=== PATIENT | female | born 1985 | race Caucasian/White ===

== ENCOUNTER 2016-11-27 21:29 | Emergency (ER) | payer BC, OTHER ==
[2016-11-27 22:07] VITALS: BP 114/77
--- NOTE | 2016-11-27 22:31 | EDM.PDOC ---
ED HPI GENERAL MEDICAL PROBLEM - General Chief Complaint: General Stated Complaint: PELVIC PAIN Time Seen by Provider: 11/27/16 22:15 Source of Information: Reports: Patient History Limitations: Reports: No limitations - History of Present Illness INITIAL COMMENTS - FREE TEXT/NARRATIVE: Chika experience midline crampy sharp pelvic pain following coitus this evening. Activity was customary, and sxs began shortly after consumation and peristed for nearly 2 hours. She still feels deep pain with standing and bending.There are no digestive, alanna vaginal or urinary sxs. She has taken no meds. There is no PMH of STD. She is on OCP and in a monogamous relationship x 5 years. bilateral pelvic area Pain Score (Numeric/FACES): 5 - Related Data Allergies Allergy/AdvReac Type Severity Reaction Status Date / Time minocycline Allergy Hives Verified 11/27/16 21:57 Sulfa (Sulfonamide Allergy Hives Verified 11/27/16 21:57 Antibiotics) Tetracyclines Allergy Hives Verified 11/27/16 21:57 Home Meds: Home Meds Norgestimate-Ethinyl Estradiol [Ortho Tri-Cyclen 28 Tablet] 1 tab PO DAILY 11/27 [History] Past Medical History Cardiovascular History: Reports: Heart murmur Other Cardiovascular History: heart murmur when she was a baby Other Respiratory History: stress-induced asthma Social & Family History - Family History Family Medical History: Noncontributory - Tobacco Use Smoking Status *Q: Never Smoker - Caffeine Use Caffeine Use: Reports: Coffee, Soda - Recreational Drug Use Recreational Drug Use: No ED ROS GENERAL - Review of Systems Review Of Systems: See Below Constitutional: Reports: no symptoms HEENT: Reports: No symptoms Respiratory: Reports: No Symptoms Cardiovascular: Reports: No symptoms Endocrine: Reports: no symptoms GI/Abdominal: Reports: Abdominal pain : Reports: no symptoms Musculoskeletal: Reports: no symptoms Skin: Reports: no symptoms Neurological: Reports: No Symptoms Psychiatric: Reports: No symptoms Hematologic/Lymphatic: Reports: no symptoms Immunologic: Reports: no symptoms ED EXAM, GENERAL - Physical Exam Exam: See Below Exam Limited By: No limitations General Appearance: alert, WD/WN, no apparent distress Head: normocephalic Neck: normal inspection, supple, non-tender, full range of motion Respiratory/Chest: no respiratory distress, lungs clear, no accessory muscle use , chest non-tender Cardiovascular: regular rate, rhythm GI/Abdominal: normal bowel sounds, soft, no organomegaly (Female) Exam: Normal external exam (chaperoned with RN), Cervix motion tenderness (mild) Rectal (Female) Exam: Deferred Back Exam: normal inspection Extremities: normal inspection Neurological: alert, oriented, CN II-XII intact, normal cognition, normal gait, no motor/sensory deficits Psychiatric: normal affect, normal mood Skin Exam: Warm, Dry, Intact, Normal color, No rash Lymphatic: no adenopathy Course - Vital Signs Text/Narrative:: A chaperoned pelvic exam was not diagnositic, with only mild pain with cervical manipulation; adnexae negative. The CBC, UA, and se HCG were all normal or negative. She is currently asx. Last Recorded V/S: Last Vital Signs Temp 36.8 C 11/27/16 21:30 Pulse 88 11/27/16 21:30 Resp 16 11/27/16 21:30 BP 114/77 11/27/16 21:30 Pulse Ox 100 11/27/16 21:30 - Orders/Labs/Meds Labs: Laboratory Tests 11/27/16 11/27/16 11/27/16 Range/Units 22:30 22:30 22:40 WBC 13.1 H (4.5-12.0) X10-3/uL RBC 4.10 (3.23-5.20) x10(6)uL Hgb 12.7 (11.5-15.5) g/dL Hct 36.9 (30.0-51.3) % MCV 90.1 (80-96) fL MCH 31.1 (27.7-33.6) pg MCHC 34.5 (32.2-35.4) g/dL RDW 12.2 (11.5-15.5) % Plt Count 274 (125-369) X10(3)uL MPV 8.1 (7.4-10.4) fL Neut % (Auto) 73.7 (46-82) % Lymph % (Auto) 15.0 (13-37) % Isabella % (Auto) 7.3 (4-12) % Eos % (Auto) 3 (1.0-5.0) % Baso % (Auto) 1 (0-2) % Neut # (Auto) 9.6 H (1.6-8.3) # Lymph # (Auto) 2.0 (0.6-5.0) # Isabella # (Auto) 1.0 (0.0-1.3) # Eos # (Auto) 0.4 (0.0-0.8) # Baso # (Auto) 0.1 (0.0-0.2) # HCG, Quant < 2 L (2.0 - ) mIU/mL Urine Color Yellow (YELLOW) Urine Appearance Cloudy (CLEAR) Urine pH 7.0 H (5.0-6.5) Ur Specific [place] 1.020 (1.010-1.025) Urine Protein Negative (NEGATIVE) mg/dL Urine Glucose (UA) Normal (NEGATIVE) mg/dL Urine Ketones Negative (NEGATIVE) mg/dL Urine Occult Blood Trace (NEGATIVE) Urine Nitrite Negative (NEGATIVE) Urine Bilirubin Negative (NEGATIVE) Urine Urobilinogen Normal (NEGATIVE) mg/dL Ur Leukocyte Esterase Negative (NEGATIVE) Urine RBC 5-10 (0) Urine WBC 0-5 (0) Ur Squamous Epith Cells Few H (NS,R,O) Urine Bacteria Few H (NS) Departure - Departure Time of Disposition: 23:30 Disposition: Home, Self-Care 01 Condition: good Clinical Impression: Pelvic pain in female Forms: ED Department Discharge - Problem List & Annotations (1) Pelvic pain in female SNOMED Code(s): 051937956 Code(s): R10.2 - PELVIC AND PERINEAL PAIN Status: Acute Current Visit: Yes Annotation/Comment:: Sxs cares with NSAIDs, and follow up with PCP if sxs relapse. - Problem List Review Problem List Initiated/Reviewed/Updated: Yes - Assessment/Plan Plan: Follow up with PCP if needed.
== END 2016-11-27 23:35 | disposition home or self-care (01) ==
LOC: FB.ED 21:29
DX: R10.2 Pelvic and perineal pain (principal); Z88.2 Allergy status to sulfonamides; Z88.8 Allergy status to other drugs, medicaments and biological substances; Z79.899 Other long term (current) drug therapy
CPT/HCPCS: 36415; 81001; 84702; 85025; 99283